=== PATIENT | male | born 1970 | race African-American/Black ===

== ENCOUNTER 2016-11-17 20:56 | Emergency (ER) | payer SELFPAY ==
--- NOTE | ~2016-11-17 | EKG ---
PATIENT: LIANNA PAEZ UNIT #: [id number] Ventricular Rate: 73 BPM Atrial Rate: 73 BPM P-R Interval: 186 ms QRS Duration: 88 ms Q-T Interval: 374 ms QTC Calculation(Bezet): 412 ms P [place]: 68 degrees Calculated R [place]: 69 degrees Calculated T [place]: -6 degrees Diagnosis Line: Normal sinus rhythm Diagnosis Line: T wave abnormality, consider inferior ischemia Diagnosis Line: Abnormal ECG Diagnosis Line: When compared with ECG of 17-NOV-2016 20:20, Diagnosis Line: (unconfirmed) Diagnosis Line: No significant change was found Diagnosis Line: Confirmed by LUCIA CHRISTENSEN MD ([id number]) on 11/19/2016 Diagnosis Line: 5:32:19 PM INTERPRETING MD: FERMIN GE
--- NOTE | ~2016-11-17 | EKG ---
PATIENT: LIANNA PAEZ UNIT #: [id number] Ventricular Rate: 77 BPM Atrial Rate: 77 BPM P-R Interval: 172 ms QRS Duration: 82 ms Q-T Interval: 360 ms QTC Calculation(Bezet): 407 ms P [place]: 69 degrees Calculated R [place]: 61 degrees Calculated T [place]: -7 degrees Diagnosis Line: Normal sinus rhythm with sinus arrhythmia Diagnosis Line: T wave abnormality, consider inferior ischemia Diagnosis Line: Abnormal ECG Diagnosis Line: Diagnosis Line: Confirmed by LUCIA CHRISTENSEN MD ([id number]) on 11/19/2016 Diagnosis Line: 5:32:14 PM INTERPRETING MD: FERMIN GE
--- NOTE | ~2016-11-17 | CR63 ---
[facility] A Service of [facility] RADIOLOGY TEXT RESULTS PATIENT: LIANNA PAEZ LOCATION: [facility] : 74 UNIT #: [id number] AGE: [address]: Ramón Reddy MD SEX: M ORDER DR: [id number] [facility] [place] [address] [place], [place] [address] [id number] MR#: [id number] #: [id number] NAME: LIANNA PAEZ. : 1970 SEX: M STUDY DATE/TIME: 11/17/2016 20:51 UNIT: [facility] ROOM: STUDY DESCRIPTION: CR Chest 2 View Attending Physician: Ramón Reddy M.D. Ordering Physician: George Velasquez M.D. Primary Care Physician: No Primary Care Physician MEDICAL IMAGING REPORT This report is preliminary unless electronic signature is present EXAM PA and lateral chest DATE 11/17/2016 HISTORY 46-year-old male with complaints of chest pain today. COMPARISON PA and lateral chest radiograph, 09/11/2015. FINDINGS No acute airspace disease is identified. No pleural effusion or pneumothorax is seen. Heart size is within normal limits. IMPRESSION No acute cardiopulmonary findings. Dictated by... Ashley Simmons M.D. THIS IS AN ELECTRONICALLY VERIFIED REPORT Ashley Simmons M.D. at 11/18/2016 10:02 AM VEE/javier TD: 11/18/2016 09:19 JOB #: [id number] MEDICAL IMAGING REPORT COPY
[2016-11-17 20:56] LABS: BASOPHIL% 0.9 % (0-2.5); EOSINOPHIL# 0.2 X10e3 (0-0.7); EOSINOPHIL% 5.6 % (0.0-7.0); HEMATOCRIT 46.2 % (38.0-50.0); HEMOGLOBIN 15.2 gm/dL (13.0-16.0); LYMPHOCYTE# 1.7 X10e3 (1.0-3.5); LYMPHOCYTE% 41.1 % (17.0-45.0); MEAN CELL VOLUME 84.7 FL (83-96); MEAN CORPUSCULAR HEMOGLOBIN 27.9 PG (28-34); MEAN PLATELET VOLUME 7.9 FL (6.5-11.5); MONOCYTE# 0.4 X10e3 (0-1.0); MONOCYTE% 9.4 % (3.0-12.0); NEUTROPHIL# 1.8 X10e3 (1.5-7.1); PLATELET COUNT 233 X10e3 (140-420); RED BLOOD COUNT 5.45 X10e (3.90-5.60); RED CELL DISTRIBUTION WIDTH 14.7 % (11.0-15.5); WHITE BLOOD COUNT 4.1 X10e3 (4.0-10.5)
[~2016-11-17 20:56] MED LIST: NO MEDICATIONS
[2016-11-17 20:57] LABS: DIFF IND NO
[2016-11-17 21:09] LABS: POC - CKMB 4.3 ng/mL (0.0-7.9); POC - TROPONIN <0.05 ng/mL (<=0.05)
[2016-11-17 21:16] LABS: ALBUMIN SERUM 4.5 g/dL (3.5-5.0); ALKALINE PHOSPHATASE 56 U/L (32-92); ALT (SGPT) 24 U/L (10-40); AST (SGOT) 41 U/L (10-42); BILIRUBIN, DIRECT 0.1 mg/dL (0.0-0.2); BILIRUBIN,INDIRECT 1.2 mg/dL (0.0-0.9); BILIRUBIN,TOTAL 1.3 mg/dL (0.2-2.0); BLOOD UREA NITROGEN 15 mg/dL (9-23); CALCIUM SERUM 9.1 mg/dL (8.4-10.2); CARBON DIOXIDE 30 mmol/L (22-31); CHLORIDE 93 mmol/L (100-111); GLOM FILT RATE Estimated ABOVE60 mL/min (>60); GLUCOSE FASTING 80 mg/dL (70-110); POTASSIUM 4.2 mmol/L (3.5-5.1); SODIUM 130 mmol/L (135-145)
[2016-11-17 23:15] LABS: POC - CKMB 3.6 ng/mL (0.0-7.9); POC - TROPONIN <0.05 ng/mL (<=0.05)
== END 2016-11-17 23:47 | disposition home or self-care (01) ==
LOC: CED 20:56
PROVIDERS: Emergency Medicine
DX: R07.89 Other chest pain (principal); F17.200 Nicotine dependence, unspecified, uncomplicated
CPT/HCPCS: 36415; 71020; 80048; 80076; 82553; 83880; 84484; 85025; 93005; 96374; 99284; J1885